=== PATIENT | female | born 1930 | race Caucasian/White ===

== ENCOUNTER → 2017-04-04 | Day surgery (SDC) | payer MEDICARE, OTHER ==
[~2017-04-04] VITALS: Ht 152.4 cm; Wt 66.4 kg
[~2017-04-04] MED LIST: ACETAMINOPHEN 1000 MG/100 ML 100 ML IV ONE; ACETAMINOPHEN/HYDROcodone 325 MG/5 MG TAB PO PRN; AMPICILLIN/SULBAC 3 GM/NS 100 ML IV SCH; BACITRACIN TOP OINT 15 GM TUBE ONE; BOSW5TAB PO; CHLORHEXIDINE GLUCONATE 2 % 1 PACK (2 CLOTHS) TOPICAL PRN; DEXAMETHASONE SOD PHOS 4 MG/ML VIAL IV ONE; DO NOT ADM ANY ANTICOAGULANT DRUGS PRN; EPINEPHRINE IV ONE; EPINEPHrine HCL (1:1000) 1 MG/ML VIAL ONE; FOLI1TAB6 PO; GLYCOPYRROLATE 1 MG/5 ML SYRINGE IV PUSH ONE; HYDROCORTISONE SOD SUCCINATE 100 MG VIAL ONE; INSULIN HUMAN REGULAR 1,000 UNITS/10 ML VIAL SQ PRN; LACTATED RINGER'S 1000 ML INJ 1,000 ML IV ONE; LACTATED RINGER'S 1000 ML INJ 1,000 ML IV SCH; LACTATED RINGER'S 1000 ML IV PRN; LIDOCAINE HCL 1% PF 5 ML AMPULE OTHER ONE; LOSA50TA2 PO; LOVA40TA PO; METH10003 SQ; METH2.5T PO; METOPROLOL TARTRATE 25 MG TAB PO PRN; NEOSTIGMINE 3 MG/3 ML SYR IV ONE; ONDANSETRON HCL 4 MG/2 ML VIAL IV PUSH ONE; ONDANSETRON HCL 4 MG/2 ML VIAL ONE; PHENYLEPH/NS 1000 MCG/10 ML SYR IV ONE; POVIDONE IODINE 5% (ANTISEPSIS KIT) 4 APPLICATIONS EACH NARE PRN; PROPOFOL 200 MG/20 ML AMP IV ONE; ROCURONIUM INJ 50 MG/5 ML SYRINGE IV PUSH ONE; SODIUM CHLORID 0.9% 500 ML IV PRN; SODIUM CHLORIDE 0.9% IV ONE; THROMBIN (TOPICAL) 5,000 UNIT VIAL ONE; ePHEDrine/NS 25 MG/5 ML SYR IV ONE
[2017-04-04 16:20] VITALS: BP 131/79; PULSE 82; RESP 16; TEMP 97.3; O2SAT 96
--- NOTE | 2017-04-04 19:00 | EKG ---
Date Performed: 04/04/2017 Time Performed: 11:04:59 PTAGE: 86 years EKG: Sinus rhythm WITH OCCASIONAL VENTRICULAR PREMATURE COMPLEXES NONSPECIFIC T-WAVE ABNORMALITY BORDERLINE ECG PREVIOUS TRACING : 08/09/2015 12.28 Compared to prior tracing no significant change DOCTOR: Al Felder Interpretating Date/Time 04/04/2017 18:59:45
--- NOTE | 2017-04-24 10:27 | MP ---
cc: DEMETRIO GONZALEZ M.D. DATE OF SURGERY April 04, [address] Demetrio Gonzalez PREOPERATIVE DIAGNOSIS Malignant cutaneous lesion right postauricular scalp. POSTOPERATIVE DIAGNOSIS Malignant cutaneous lesion right postauricular scalp. OPERATION PERFORMED Excision the right submandibular salivary gland. INDICATIONS As documented in the history and physical. DESCRIPTION OF OPERATION The patient was taken to OR #8 and placed in the supine position. Following induction of general anesthesia and intubation, a shoulder roll was placed and the patient was positioned for surgery of the right lateral neck. The neck was marked with a 6-cm horizontal line two fingerbreadths below the inferior border of the mandible. This was at the level of the inferior margin of the salivary gland. The line was injected with 6 mL of a 1:100,000 solution of epinephrine. She was then prepped and draped for surgery. The line was incised down to the subplatysmal plane exposing the superficial layer of deep cervical fascia. This fascia was then elevated and bluntly penetrated at the inferior extent of the salivary gland. It was then dissected free from the gland on all surfaces using blunt and bipolar cautery dissection. The posterior superior area of the salivary gland, the facial artery and vein were identified. These were doubly clamped and ligated freeing the posterior of the salivary gland. Dissection continued on the posterior surface exposing the digastric muscle. Dissection continued superiorly and then across the superior surface of the gland freeing the submandibular ganglion and lingual nerve from the gland. The mylohyoid muscle was retracted anteriorly exposing the duct. Further blunt and bipolar cautery dissection freed the duct from its surrounding attachments. It was then doubly clamped and ligated and tied with a 2-0 silk suture ligature. The gland was then passed off the field for histological examination. The wound was then irrigated and flushed with 10,000 units of topical thrombin. This remained in place as closure was completed without a drain using 3-0 Vicryl interrupted in the platysmal layer, 4-0 Vicryl subcutaneous and 5-0 fast-absorbing gut in the skin itself. A [place] dressing was applied and the procedure was terminated. The patient was reversed from anesthesia and taken to Recovery in good condition. There were no complications. Blood loss was 30 mL. MD VICTOR MANUEL Landrum/SSB /8:42 AM /10:24 AM
== END | disposition home or self-care (01) ==
LOC: HSDC 10:44
PROVIDERS: ATTEND Otolaryngology
DX: K11.23 Chronic sialoadenitis (principal); I10 Essential (primary) hypertension; R94.31 Abnormal electrocardiogram [ECG] [EKG]
CPT/HCPCS: 00100; 42440; 88307; 93005; J0131; J0171; J0295; J1100; J1720; J2370; J2405; J2710; J3010; J7120; 88305